=== PATIENT | male | born 1950 | race Caucasian/White ===

== ENCOUNTER 2021-06-20 22:28 | Emergency (ER) | payer MEDICARE, MEDICAID, SELFPAY ==
[2021-06-20] MEDS: fentaNYL citrate/PF 100 MCG/2 ML VIAL 50 MCG IVPUSH ×2 (22:43→23:27)
--- NOTE | 2021-06-20 22:51 | ED_ITS ---
HPI - General Adult General Chief complaint: Failure to Thrive Stated complaint: sob pneumonia Time Seen by Provider: 06/20/21 22:35 History of Present Illness HPI narrative: Patient with history significant for schizoaffective disorder, recent severe pneumonia. He has a MOLST form for do not resuscitate do not intubate and no noninvasive ventilation. He apparently has had a low oxygen saturation at the retirement for the last several days. Today he was sent to the emergency department with an apparent goal of comfort care. The patient himself is unable to give any history Related Data Allergies Allergy/AdvReac Type Severity Reaction Status Date / Time No Known Allergies Allergy Unverified 06/20/21 22:35 Review of Systems Review of Systems: Unable to determine if review of systems PMFSH Social History Social History Advance Directives: No Advance Directives Information Provided: No Physical Exam Vital Signs: Vital Signs: Last Vital Signs Pulse 111 H 06/20/21 23:00 Resp 10 L 06/20/21 23:00 BP 117/71 06/20/21 23:00 Pulse Ox 84 L 06/20/21 23:00 Oxygen Flow Rate 15 06/20/21 23:00 Body Mass Index 20.3 Const: Other: Patient is cachectic and very ill appearing. Will he is awake but appears somnolent. He has clear respiratory distress. He is not verbal. HENMT: Other: Mucosa very dry Resp: Other: Rhonchi and rales bilaterally with fair air entry Cardio: Other: Tachycardic GI: Other: Soft nondistended Skin: Other: Pale Course Course Course Narrative: Patient is critically ill. He is clear respiratory failure with severe hypoxia. Will confirm with retirement 11:01 p.m.. Case discussed with [facility]. They confirm he is a DNR DNI. I also discussed the case with his guardian Ella Montaño who confirms these are his wishes. In addition I do not think aggressive measures would significantly prolong his life. Will make our main goal to keep him comfortable. Fentanyl given IV. 11:49 p.m.. Patient pronounced . No heart tones. No spontaneous respirations. PEA and the monitor. title insurance examiner will be notified. Attempted to notify guardian but it went to voicemail. Medical Decision Making Lab Data Labs: Lab Results 06/20/21 Range/Units 23:06 COVID-19 ([facility]) Negative (Negative) COVID-19 Clin Com See Note Critical Care Time Critical Care Time Critical Care Time: Yes Total Critical Care Time: 120 Attestation: Critically ill patient. Multiple conversations regarding end of life care. Discharge Plan Discharge Clinical Impression: Respiratory failure Qualifiers: Chronicity: acute Respiratory failure complication: hypoxia Qualified Code(s): J96.01 - Acute respiratory failure with hypoxia Patient Disposition: Admitted As Inpatient
[2021-06-20 22:53] VITALS: BP 117/71; PULSE 111; RESP 10; O2SAT 84; BMI 20.3
[2021-06-20 23:00] VITALS: BP 117/71; PULSE 111; RESP 10; O2SAT 84
[2021-06-20 23:26] LABS: COVID-19 Test Negative (Negative)
[2021-06-20] MEDS: Morphine Sulfate 10 MG/ML CARTRIDGE IVPUSH (23:51)
--- NOTE | 2021-06-20 23:53 | PC.NURSE ---
RN not at bedside when patient passed. Per MD patient passed at [id number].
--- NOTE | 2021-06-21 00:08 | PC.NURSE ---
RN spoke with [facility] José Luis Corcoran , declined donation at this time.
== END 2021-06-21 01:01 | disposition expired ==
PROVIDERS: Emergency Provider Emergency Medicine
DX: J96.01 Acute respiratory failure with hypoxia (principal); F25.9 Schizoaffective disorder, unspecified; Z20.822 Contact with and (suspected) exposure to COVID-19; Z79.899 Other long term (current) drug therapy
CPT/HCPCS: 36415; 87635; 96374; 96375; 96376; 99285; J2270; J3010